=== PATIENT | male | born 1955 | race African-American/Black ===

== ENCOUNTER 2019-08-05 16:51 | Observation (INO) ==
[2019-08-05] MEDS ORDERED: Aspirin 81 MG TAB.CHEW PO ONE (17:12)
[2019-08-05 17:39] LABS: Basophils # 0.1 K/mcL (0.0-0.2); Basophils % 1.2 %; Eosinophils # 0.2 K/mcL (0.0-0.6); Eosinophils % 3.9 %; Hemoglobin 14.2 g/dL (12.9-16.9); Immature Granulocytes % 0.4 % (0-4); Lymphocytes # 2.2 K/mcL (0.6-4.6); Lymphocytes % 39.4 %; Mean Corpuscular Hemoglobin 31.1 pg (28.0-33.3); Mean Corpuscular Volume 94.3 fL (83.0-100.0); Mean Platelet Volume 10.7 fL (9.4-12.4); Monocytes # 0.7 K/mcL (0.0-1.3); Neutrophils # 2.4 K/mcL (1.6-8.9); Platelet Count 231 K/mcL (140-400); Red Blood Count 4.56 M/mcL (4.19-5.50); Red Cell Distribution Width 12.3 % (11.5-14.5); Segmented Neutrophils % 43.1 %; White Blood Count 5.7 K/mcL (4.3-11.1)
[2019-08-05 17:47] LABS: BUN/Creatinine Ratio 16 (6-26); Blood Urea Nitrogen 16 mg/dL (8-23); Calcium 9.6 mg/dL (8.6-10.3); Carbon Dioxide 27 mEq/L (23-29); Chloride 107 mEq/L (98-107); Glucose 124 mg/dL (70-105); Osmolality,Calculated 293 (280-300); Potassium 3.9 mEq/L (3.5-5.1); Sodium 140 mEq/L (136-145); Troponin I 0.03 ng/mL (< 0.04); eGFR For African Americans > 60 (> 60); eGFR For Non-African Americans > 60 (> 60)
[2019-08-05] MEDS ORDERED: *HR* Heparin 5,000 UNIT/ML VIAL IVP PRN ×2 (18:06)
[2019-08-05] MEDS ORDERED: *HR* Heparin 5,000 UNIT/ML VIAL IVP ONE (18:06)
[2019-08-05] MEDS ORDERED: Heparin 25,000 UNIT/250 ML D5W 25,000 UNIT/250 ML IV.SOLN IVC SCH (18:15)
[2019-08-05] MEDS ORDERED: Nitroglycerin 1 INCH/GM PACKET TP ONE (18:23)
[2019-08-05 18:33] LABS: Heparin anti-factor XA UFH < 0.04 IU/mL (0.30-0.70)
[2019-08-05 18:34] LABS: INR 1.1
[2019-08-05] MEDS ORDERED: Naloxone 0.4 MG/ML INJ IVP PRN (22:01)
[2019-08-05] MEDS ORDERED: Acetaminophen 325 MG TABLET PO PRN (23:54)
[2019-08-06 05:59] LABS: Hematocrit 39.2 % (37.5-50.1); Mean Corpuscular HGB Conc 33.2 g/dL (31.6-35.5); Mean Corpuscular Hemoglobin 31.8 pg (28.0-33.3); Mean Corpuscular Volume 95.8 fL (83.0-100.0); Mean Platelet Volume 10.6 fL (9.4-12.4); Platelet Count 196 K/mcL (140-400); Red Blood Count 4.09 M/mcL (4.19-5.50); Red Cell Distribution Width 12.2 % (11.5-14.5); White Blood Count 4.8 K/mcL (4.3-11.1)
[2019-08-06 06:18] LABS: BUN/Creatinine Ratio 15 (6-26); Blood Urea Nitrogen 13 mg/dL (8-23); Calcium 8.9 mg/dL (8.6-10.3); Carbon Dioxide 24 mEq/L (23-29); Chloride 106 mEq/L (98-107); Glucose 96 mg/dL (70-105); Osmolality,Calculated 286 (280-300); Potassium 3.6 mEq/L (3.5-5.1); Sodium 138 mEq/L (136-145); Troponin I 0.03 ng/mL (< 0.04); eGFR For African Americans > 60 (> 60); eGFR For Non-African Americans > 60 (> 60)
[2019-08-06] MEDS ORDERED: Nitroglycerin 0.4 MG TAB.SUBL SL PRN (07:38)
[2019-08-06] MEDS ORDERED: Dextrose Gel 15 GM/37.5 ML TUBE PO PRN ×2 (07:38)
[2019-08-06] MEDS ORDERED: D5% in Water 1,000 ML IVC PRN (07:38)
[2019-08-06] MEDS ORDERED: *HR* Dextrose 50 % in Water (Syg) 50 ML SYRINGE IVP PRN (07:38)
[2019-08-06] MEDS ORDERED: atenoloL 50 MG TABLET PO SCH (09:00)
[2019-08-06] MEDS ORDERED: Aspirin Enteric Coated 81 MG Tablet PO SCH (09:00)
[2019-08-06] MEDS ORDERED: NON-FORMULARY MEDICATION 1 EACH EACH (Amlodipine Besylate/Benazepril [Amlodipine-Benazepri PO SCH (09:00)
[2019-08-06] MEDS ORDERED: lisinopriL 20 MG TABLET PO SCH (09:00)
[2019-08-06] MEDS ORDERED: amLODIPine 5 MG TABLET PO SCH (09:00)
[2019-08-06 11:05] VITALS: BP 151/78
[2019-08-06] MEDS ORDERED: Insulin LISPRO 300 UNITS/3 ML VIAL SQ SCH (12:00)
== END 2019-08-06 13:47 | disposition home or self-care (01) ==
LOC: EMEROOARM 16:51 → 2ANU 16:51
PROVIDERS: ADMIT Internal Medicine; ATTEND Internal Medicine